=== PATIENT | male | born 1965 | race African-American/Black ===

== ENCOUNTER 2019-06-14 14:56 | Emergency (ER) | payer MEDICARE ==
[~2019-06-14] VITALS: Ht 175.3 cm; Wt 113.0 kg
[2019-06-14] MEDS: SODIUM CHLORIDE 0.9% 1,000 ML IV ONE (16:35)
[2019-06-14 17:12] LABS: BASOPHILS % 0.5 % (0.0-2.0); EOSINOPHILS % 0.2 % (0.0-5.0); HEMATOCRIT. 41.3 % (42.0-52.0); HEMOGLOBIN. 14.2 g/dL (14.0-18.0); LYMPHOCYTES % 13.9 % (20.0-50.0); MEAN CORPUSCULAR HEMOGLOBIN 29.9 pg (28.0-32.0); MEAN PLATELET VOLUME 7.4 fl (7.4-10.4); MONOCYTES % 7.4 % (2.0-8.0); PLATELET 309 x1000/uL (130-400); RED BLOOD CELL COUNT 4.75 mill/uL (4.7-6.1); RED CELL DISTRIBUTION WIDTH 13.4 % (11.6-14.6)
[2019-06-14 17:22] LABS: CHLORIDE 109 mEq/L (98-107)
[2019-06-14 17:27] LABS: ETHANOL BLOOD < 10 mg/dL
[2019-06-14] MEDS: KETOROLAC 30MG/ML VIAL IV ONE (17:30)
[2019-06-14] MEDS: LOSARTAN POTASSIUM 25 MG TABLET PO ONE (17:30)
[2019-06-14] MEDS ORDERED: QUETIAPINE FUMARATE 25MG TABLET PO STA (17:30)
[2019-06-14 18:30] LABS: CLARITY URINE CLOUDY (CLEAR); COLOR URINE YELLOW (YELLOW); KETONES URINE TRACE (NEGATIVE); LEUKOCYTE ESTERASE URINE NEGATIVE (NEGATIVE); NITRITE URINE NEGATIVE (NEGATIVE); OCCULT BLOOD URINE NEGATIVE (NEGATIVE); PH URINE 5.5 (4.5-8.0); PROTEIN URINE 1+ (NEGATIVE); SPECIFIC GRAVITY URINE 1.036 (1.005-1.030); UROBILINOGEN URINE 0.2 E.U./dL (0.2-1.0)
[2019-06-14 18:35] VITALS: BP 111/66
[2019-06-14] MEDS: GABAPENTIN 300MG CAPSULE PO ONE (18:35)
[2019-06-14] MEDS: QUETIAPINE FUMARATE 50MG TABLET PO NR (18:35)
[2019-06-14 18:59] LABS: *AMPHETAMINES SCREEN URINE NEGATIVE (NEGATIVE); *BARBITURATES SCREEN URINE NEGATIVE (NEGATIVE); *BENZODIAZEPINES SCREEN URINE PRESUMTIVE POSITIVE (NEGATIVE); *COCAINE SCREEN URINE NEGATIVE (NEGATIVE)
[2019-06-14 19:01] LABS: CANNABINOID URINE SCREEN PRESUMTIVE POSITIVE (NEGATIVE); METHADONE URINE SCREEN NEGATIVE (NEGATIVE); OPIATES URINE SCREEN NEGATIVE (NEGATIVE); PHENCYCLIDINE URINE SCREEN NEGATIVE (NEGATIVE)
== END 2019-06-14 22:31 | disposition home or self-care (01) ==
LOC: ER 14:56
DX: R45.6 Violent behavior (principal); R73.9 Hyperglycemia, unspecified; G89.29 Other chronic pain; R45.1 Restlessness and agitation; R00.0 Tachycardia, unspecified
CPT/HCPCS: 36415; 80053; 80305; 80307; 80320; 80329; 81003; 82962; 85025; 99284; J7030; Z7610; G0480

== ENCOUNTER 2020-01-17 15:59 | Emergency (ER) | payer MEDICAID, MEDICARE ==
[~2020-01-17] VITALS: Ht 182.9 cm; Wt 113.0 kg
[2020-01-17 16:09] VITALS: BP 0/0
== END 2020-01-17 16:10 | disposition left against medical advice (07) ==
LOC: ER 15:59
DX: R68.89 Other general symptoms and signs (principal); Z53.21 Procedure and treatment not carried out due to patient leaving prior to being seen by health care provider